=== PATIENT | female | born 1975 | race Caucasian/White ===

== ENCOUNTER 2025-08-09 21:28 | Emergency (ER) | payer MEDICAID, SELFPAY ==
[2025-08-09 21:31] VITALS: BP 170/88; PULSE 89; RESP 18; TEMP 37.1; O2SAT 98
[2025-08-09 21:37] VITALS: BP 170/88; PULSE 89; RESP 18; TEMP 37.1; O2SAT 98
--- NOTE | 2025-08-09 21:58 | W.ED.GENAD ---
Discharge Plan Discharge Details Chief Complaint: Abd Prob Primary Care Provider: Kendy Wiggins ED Provider: Connie Oliver Home Meds and New Rx's Prescriptions: No Action bupropion HCl 100 mg tablet 300 mg PO ONCE montelukast [Singulair] 10 mg tablet 10 mg PO DAILY hydroxychloroquine [Plaquenil] 200 mg tablet 600 mg PO DAILY pantoprazole 40 mg tablet,delayed release (DR/EC) 40 mg PO DAILY HPI General Mode of arrival: ambulatory. Date/Time Provider Initiated Documentation: 08/09/25 21:38. Limitations to Documentation: no limitations. Information obtained by: patient, RN notes reviewed and old records reviewed. HPI Narrative: 49-year-old female presents to the ER with chief complaint of mid suprapubic abdominal pain which has been ongoing for the last 7 days. She reports intermittent crampy type pain. No associated symptoms. Denies any nausea vomiting diarrhea, dysuria, fever or chills. She does have a history of and does have an IUD in place. Related Data Home Medications ?Medication ?Instructions ?Recorded ?Confirmed bupropion HCl 100 mg tablet 300 mg PO ONCE 08/09/25 08/09/25 hydroxychloroquine 200 mg tablet 600 mg PO DAILY 08/09/25 08/09/25 (Plaquenil) montelukast 10 mg tablet 10 mg PO DAILY 08/09/25 08/09/25 (Singulair) pantoprazole 40 mg tablet,delayed 40 mg PO DAILY 08/09/25 08/09/25 release Allergies Allergy/AdvReac Type Severity Reaction Status Date / Time adhesive tape Allergy Mild rash Verified 08/09/25 21:35 latex Allergy Mild rash Verified 08/09/25 21:35 codeine AdvReac Mild Nausea Verified 08/09/25 21:35 General Stated Complaint: Abd Prob RAQUEL: 3 Review of Systems All systems reviewed & are unremarkable except as noted in HPI and below Gastrointestinal Gastrointestinal: Reports abdominal pain, Reports nausea and Denies vomiting Exam Narrative Exam Narrative: Constitutional: Alert and oriented x3. Appears stated age. Obese body habitus. Head: Normocephalic, no trauma. Eyes: Pupils PERRL, Red reflex noted, EOM's intact. Eyelids symmetrical without lesions, discharge, or swelling. Chest: RRR, Normal S1, S2, distal pulses intact. Resp: Lungs clear to auscultation bilaterally, no wheezes, rales, or rhonchi. Abdomen: Soft, non-distended, Normoactive bowel sounds all 4 quads. Tenderness with palpation in the mid suprapubic area no masses noted. Musculoskeletal: Normal gait, Moves all 4 extremities without difficulty. Skin: No suspicious rashes or lesions. Capillary refill less than 2 sec. Neurologic: Cranial nerves II-XII intact. Alert and oriented x 3. Motor: No deficits noted. Hematologic/Lymphatic: No ecchymosis, no lymphadenopathy. Course Vital Signs Vital signs: Vital Signs Temperature 37.1 C 08/09/25 21:31 Pulse 89 08/09/25 21:31 Respiratory Rate 18 08/09/25 21:31 Blood Pressure 170/88 H 08/09/25 21:31 Pulse Oximetry 98 08/09/25 21:31 Temperature 37.1 C 08/09/25 21:37 Pulse 89 08/09/25 21:37 Respiratory Rate 18 08/09/25 21:37 Blood Pressure 170/88 H 08/09/25 21:37 Pulse Oximetry 98 08/09/25 21:37 Pain Level 7 08/09/25 21:37 Medical Decision Making 49-year-old female presents to the ER with chief complaint of mid suprapubic abdominal pain which has been ongoing for the last 7 days. She reports intermittent crampy type pain. No associated symptoms. Denies any nausea vomiting diarrhea, dysuria, fever or chills. She does have a history of and does have an IUD in place. Differential diagnosis includes but not limited to appendicitis, gastroenteritis, urinary tract infection, ovarian cyst, constipation, bowel obstruction however patient is having no vomiting no constipation. CBC, CMP urinalysis lipase CT abdomen pelvis ordered. CBC largely within normal limits no leukocytosis, CMP also within normal limits. Urinalysis shows no evidence for urinary tract infection, no leukocytes no nitrates no blood. CT abdomen pelvis is pending at this time. Care is to be handed off to Oncoming provider Dr. Ara Thomas pending CT result and dispo. Patient case and details discussed. Medical Records Medical records reviewed: Yes I reviewed the patient's medical records. Lab Data Lab results reviewed: Yes I reviewed the patient's lab results. Labs: Laboratory Tests Range/Units 08/09/25 08/09/25 22:00 22:09 WBC (4.4-10.8) 10^3/uL 8.18 RBC (3.93-5.22) 10^6/uL 4.11 Hgb (11.2-15.7) g/dL 11.7 Hct (36.0-46.0) % 36.2 MCV (80-95) fL 88 MCH (27.0-33.0) pg 28.5 MCHC (32.0-36.0) % 32.3 RDW (11.7-14.6) % 11.8 Plt Count (130-400) 10^3/uL 379 MPV (8.0-11.0) fL 9.9 Immature Gran % % 0.4 Neutrophils % % 56.0 Lymphocytes % % 29.6 Monocytes % % 10.3 Eosinophils % % 2.2 Basophils % % 1.5 Nucleated RBC % (0.0-0.3) % 0.0 Absolute Neutrophils (1.2-6.7) 10^3/uL 4.59 Absolute Lymphocytes (1.2-3.4) 10^3/uL 2.42 Absolute Monocytes (0.1-0.8) 10^3/uL 0.84 H Absolute Eosinophils (0.0-0.7) 10^3/uL 0.18 Absolute Basophils (0.0-0.2) 10^3/uL 0.12 Sodium (136-145) mmol/L 138 Potassium (3.5-5.1) mmol/L 3.8 Chloride (98-107) mmol/L 103 Carbon Dioxide (21.0-32.0) mmol/L 29.0 Anion Gap (3-11) mmol/L 6.0 BUN (7-18) mg/dL 14 Creatinine (0.55-1.02) mg/dL 0.9 Est GFR (CKD-EPI 2020) (mL/min/1.73m2) 78.37 Glucose (74-106) mg/dL 93 Calcium (8.5-10.1) mg/dL 8.5 Magnesium (1.8-2.4) mg/dL 1.9 Total Bilirubin (0.2-1.0) mg/dL 0.2 AST (15-37) U/L 19 ALT (14-59) U/L 30 Alkaline Phosphatase (46-116) U/L 93 Total Protein (6.4-8.2) g/dL 7.8 Albumin (3.4-5.0) g/dL 3.9 Lipase (<78) U/L 23 Urine Color (Yellow) Yellow Urine Clarity (Clear) Clear Urine pH (5-8) 7.0 Ur Specific [place] (1.005-1.025) 1.020 Urine Protein (Neg-Trace) mg/dL Negative Urine Ketones (Negative) mg/dL Negative Urine Blood (Negative) Negative Urine Nitrite (Negative) Negative Urine Bilirubin (Negative) Negative Urine Urobilinogen (Up to 0.2) mg/dL 0.2 Ur Leukocyte Esterase (Negative) Negative Urine Glucose (Negative) mg/dL Negative [facility] Surgical History (Updated 08/09/25 @ 22:52 by Connie Oliver NP) H/O: Social History Smoking risk assessment performed?: No
[2025-08-09 22:18] LABS: Glucose Negative (Negative)
[2025-08-09 22:18] LABS: Abs Immature Grans 0.03 10^3/uL (0.0-0.06); HCT 36.2 % (36.0-46.0); HGB 11.7 g/dL (11.2-15.7); Immature Grans % 0.4 %; MCH 28.5 pg (27.0-33.0); MCHC 32.3 % (32.0-36.0); MCV 88 fL (80-95); MPV 9.9 fL (8.0-11.0); Platelet Count 379 10^3/uL (130-400); RBC 4.11 10^6/uL (3.93-5.22); RDW 11.8 % (11.7-14.6); RDW-SD 38.0 fL; WBC 8.18 10^3/uL (4.4-10.8)
[2025-08-09] MEDS: Omnipaque 350 MG/ML 100 ML BTL IJ (22:24)
[2025-08-09] MEDS: Normal Saline - Diluent 50 ML VIAL IJ (22:25)
[2025-08-09] MEDS: Normal Saline Flush 10 ML SYR IVP (22:26)
--- NOTE | 2025-08-09 22:31 | DI.CT_ITS ---
Exam(s) CT ABDOMEN PELVIS W EXAM: CT ABDOMEN PELVIS W CLINICAL HISTORY: Mid Abd Pain. TECHNIQUE: Imaging Protocol: Axial computed tomography images with coronal and sagittal reformatted images were created and reviewed CONTRAST MATERIAL: Intravenous: Omnipaque-350 75cc Oral: None COMPARISON: No exams were available for comparison FINDINGS: VISUALIZED LUNG BASES: No nodules nor pleural effusions evident. ABDOMEN: There is no ascites. LIVER: There are no focal hepatic lesions evident. No dilated intrahepatic ducts. GALLBLADDER/BILIARY: Gallbladder surgically absent. CBD is not dilated. PANCREAS: No evidence of pancreatic mass nor dilatation of the pancreatic duct. SPLEEN: Spleen is not enlarged. No obvious intrasplenic lesions. Splenic and portal veins are patent. ADRENALS: There are no significant adrenal masses. KIDNEYS:No cysts evident. No solid renal masses. No calculi nor hydronephrosis.. ABDOMINAL AORTA: Abdominal aorta is not enlarged. LYMPH NODES:There is no retroperitoneal nor paraaortic adenopathy. ABDOMINAL WALL: No evidence of significant anterior abdominal wall nor inguinal hernia. GI: There is abundant fecal material throughout the colon although the mid- distal sigmoid are evacuated. There is some mild circumferential mural thickening in the upper sigmoid in left iliac fossa which appears to be a relative transition point with respect to the amount of fecal material in the colon. This may just represent muscular thickening in the wall the colon at this level but should undergo colonoscopy. There is no significant sigmoid diverticular disease. PELVIS: GI: Appendix not identified.No evidence of sigmoid diverticulitis. LYMPH NODES: There is no intrapelvic nor inguinal adenopathy. REPRODUCTIVE: There is an IUD in the endometrial canal which appears to be in good position. There is a left ovarian cyst measuring 2.5 by 2.0 cm. There is a peripherally enhancing corpus luteal cyst in the right ovary which measures 1.6 x 1.6 cm. There is a small amount of fluid in the right adnexal region and cul-de-sac. URINARY BLADDER: No calculi nor obvious masses evident OSSEOUS: No osseous lesions. No fractures. There is disc space narrowing at L4-5 and L5-S1 levels. There is mild anterolisthesis of L4 upon L5 which. IMPRESSION: 1. Bilateral ovarian cysts as described above including a peripherally enhancing corpus luteal cyst in the right ovary with some surrounding fluid in the right adnexa and cul-de-sac. An IUD is noted in the uterus. 2. Constipation. There is abundant fecal material throughout the colon to the level of the mid upper sigmoid. There is mild circumferential thickening of the wall of the upper sigmoid which may be significant and follow-up colonoscopy is recommended. 3. Previous cholecystectomy. Possibly also prior appendectomy SC appendix is not seen Report called by myself to ER physician 08/09/2025 at 11:45 p.m. RADIATION DOSE DELIVERED: 673.17mGy.cm Total DLP DATA REPOSITORY: All CT scans at this facility are submitted to the National Radiology Data Registry (NRDR) Dose Index Registry (DIR) with the [employer] (ACR). RADIATION OPTIMIZATION: All CT scans at this facility use at least one of these dose optimization techniques: automated exposure control; mA and/or kV adjustment per patient size (includes targeted exams where dose is matched to clinical indication); or iterative reconstruction.
[2025-08-09 22:33] LABS: ALT 30 U/L (14-59); AST 19 U/L (15-37); Albumin 3.9 g/dL (3.4-5.0); Alkaline Phosphatase 93 U/L (46-116); Anion Gap 6.0 mmol/L (3-11); BUN 14 mg/dL (7-18); Bilirubin, Total 0.2 mg/dL (0.2-1.0); CO2 29.0 mmol/L (21.0-32.0); Calcium 8.5 mg/dL (8.5-10.1); Chloride 103 mmol/L (98-107); Estimated GFR 78.37 (mL/min/1.73m2); Glucose 93 mg/dL (74-106); Lipase 23 U/L (<78); Magnesium 1.9 mg/dL (1.8-2.4); Potassium 3.8 mmol/L (3.5-5.1); Sodium 138 mmol/L (136-145); Total Protein 7.8 g/dL (6.4-8.2)
--- NOTE | 2025-08-09 23:32 | DI.[facility]_ITS ---
PROCEDURE INFORMATION: Exam: CT Abdomen And Pelvis With Contrast Exam date and time: 08/09/2025 10:19 PM Age: 49 years old Clinical indication: Abdominal pain; Localized; Mid abd pain TECHNIQUE: Imaging protocol: Computed tomography of the abdomen and pelvis with contrast. Radiation optimization: All CT scans at this facility use at least one of these dose optimization techniques: automated exposure control; mA and/or kV adjustment per patient size (includes targeted exams where dose is matched to clinical indication); or iterative reconstruction. Contrast material: [id number]; Contrast volume: 75 ml; Contrast route: INTRAVENOUS (IV); COMPARISON: No relevant prior studies available. FINDINGS: Liver: Normal. No mass. Gallbladder and biliary ducts: Normal. No calcified stones. No ductal dilation. Pancreas: Unremarkable. Spleen: Normal. Adrenal glands: Normal. No mass. Kidneys and ureters: Normal. No hydronephrosis. Stomach and bowel: No bowel wall thickening or intestinal obstruction. Most of the colon is mildly diffusely distended with stool, raising the possibility of constipation. Appendix: Prior appendectomy. Intraperitoneal space: Unremarkable. No pneumoperitoneum. No abscess. Vasculature: Unremarkable. Lymph nodes: Unremarkable. Urinary bladder: Unremarkable as visualized. Reproductive: 1.7 cm luteal cyst of the right ovary is mildly irregular in contour and there is small volume free fluid adjacent to the right ovary, findings which raise the possibility of recent right ovarian cyst rupture. 3 cm left ovarian cyst. IUD in place, appears adequately positioned. Bones/joints: Congenital anomaly versus chronic post surgical change of the posterior elements of L4. Soft tissues: Unremarkable. IMPRESSION: 1. 1.7 cm luteal cyst of the right ovary is mildly irregular in contour and there is small volume free fluid adjacent to the right ovary, findings which raise the possibility of recent right ovarian cyst rupture. 2. 3 cm left ovarian cyst. 3. Most of the colon is mildly diffusely distended with stool, raising the possibility of constipation. Dictated and Authenticated by: Fareed Duran MD. Orderin Melody Rosales MD
--- NOTE | 2025-08-09 23:43 | W.EDPROG ---
Date of service: 08/09/25 Time of Service: 23:00 Medical Decision Making This patient was signed out to me. Please see previous notes for H&P and inital eval. I brief, 49yo F with abdominal pain, initially RLQ now more diffuse across lower abdomen. Abdominal exam and labs reassuring. Signed out pending CT read. Radiology read below with suggestion of recent right ovarian cyst rupture. On reassessment patient is well appearing, reports continued mild crampy lower abdominal pain. Nontender on exam with no rebound or guarding. Her history of RLQ pain that then became more diffuse (and patient reports pain initially felt similar to ovulation pain) does seem to support radiology read. Given lower abdominal pain/pelvic pain, considered pelvic exam however patient declined. I am not concerned for ovarian torsion, TOA, or other pathology that would warrant transfer for pelvic ultrasound tonight. Will give dose of IV toradol here and discharge home. Prior to discharge called by Dr. Lucero [facility] radiologist reading from home this evening; he agrees with [facility] read and also notes concern for some thickening of upper sigmoid which warrants outpatient colonoscopy. This was communicated to patient. Discharged home; discharge instructions and return precautions were reviewed with patient who verbalized understanding. All questions were answered and she is in full agremeent with the plan. [facility] IMPRESSION: 1. 1.7 cm luteal cyst of the right ovary is mildly irregular in contour and there is small volume free fluid adjacent to the right ovary, findings which raise the possibility of recent right ovarian cyst rupture. 2. 3 cm left ovarian cyst. 3. Most of the colon is mildly diffusely distended with stool, raising the possibility of constipation Lab Data Lab results reviewed: Yes I reviewed the patient's lab results. Labs: Laboratory Tests Range/Units 08/09/25 08/09/25 22:00 22:09 WBC (4.4-10.8) 10^3/uL 8.18 RBC (3.93-5.22) 10^6/uL 4.11 Hgb (11.2-15.7) g/dL 11.7 Hct (36.0-46.0) % 36.2 MCV (80-95) fL 88 MCH (27.0-33.0) pg 28.5 MCHC (32.0-36.0) % 32.3 RDW (11.7-14.6) % 11.8 Plt Count (130-400) 10^3/uL 379 MPV (8.0-11.0) fL 9.9 Immature Gran % % 0.4 Neutrophils % % 56.0 Lymphocytes % % 29.6 Monocytes % % 10.3 Eosinophils % % 2.2 Basophils % % 1.5 Nucleated RBC % (0.0-0.3) % 0.0 Absolute Neutrophils (1.2-6.7) 10^3/uL 4.59 Absolute Lymphocytes (1.2-3.4) 10^3/uL 2.42 Absolute Monocytes (0.1-0.8) 10^3/uL 0.84 H Absolute Eosinophils (0.0-0.7) 10^3/uL 0.18 Absolute Basophils (0.0-0.2) 10^3/uL 0.12 Sodium (136-145) mmol/L 138 Potassium (3.5-5.1) mmol/L 3.8 Chloride (98-107) mmol/L 103 Carbon Dioxide (21.0-32.0) mmol/L 29.0 Anion Gap (3-11) mmol/L 6.0 BUN (7-18) mg/dL 14 Creatinine (0.55-1.02) mg/dL 0.9 Est GFR (CKD-EPI 2020) (mL/min/1.73m2) 78.37 Glucose (74-106) mg/dL 93 Calcium (8.5-10.1) mg/dL 8.5 Magnesium (1.8-2.4) mg/dL 1.9 Total Bilirubin (0.2-1.0) mg/dL 0.2 AST (15-37) U/L 19 ALT (14-59) U/L 30 Alkaline Phosphatase (46-116) U/L 93 Total Protein (6.4-8.2) g/dL 7.8 Albumin (3.4-5.0) g/dL 3.9 Lipase (<78) U/L 23 Urine Color (Yellow) Yellow Urine Clarity (Clear) Clear Urine pH (5-8) 7.0 Ur Specific [place] (1.005-1.025) 1.020 Urine Protein (Neg-Trace) mg/dL Negative Urine Ketones (Negative) mg/dL Negative Urine Blood (Negative) Negative Urine Nitrite (Negative) Negative Urine Bilirubin (Negative) Negative Urine Urobilinogen (Up to 0.2) mg/dL 0.2 Ur Leukocyte Esterase (Negative) Negative Urine Glucose (Negative) mg/dL Negative Discharge Plan Disposition Patient Disposition: Home Condition: Good Discharge Details Clinical Impression: Ovarian cyst rupture Primary Care Provider: Kendy Wiggins ED Provider: Denice Thomas Home Meds and New Rx's Prescriptions: No Action bupropion HCl 100 mg tablet 300 mg PO ONCE montelukast [Singulair] 10 mg tablet 10 mg PO DAILY hydroxychloroquine [Plaquenil] 200 mg tablet 600 mg PO DAILY pantoprazole 40 mg tablet,delayed release (DR/EC) 40 mg PO DAILY Discharge Instructions Instructions: Ovarian Cyst ED Additional Instructions: -Tylenol and ibuprofen at home for pain; follow the directions on the bottle. -Call your primary care doctor in the morning to schedule an appointment for within the next 72 hours to followup on your visit here. At that visit discuss your abdominal pain, your blood pressure (which is high here today), and your CT scan which showed some thickening in your colon for which you should have a colonsocopy to better evaluate. -It is likely your symptoms are from an ovarian cyst rupture,but it also still possible something else is going on . It is very important that you return to the emergency department for or worsening symptoms including worsening pain, fever, or if you have any other concerns.
[2025-08-09 23:50] VITALS: BP 145/79; PULSE 81; RESP 18; O2SAT 98
[2025-08-10] MEDS: Ketorolac 15 MG/ML VIAL IVP (00:04)
[2025-08-10 00:12] VITALS: BP 145/79; PULSE 81; RESP 18; O2SAT 98
== END 2025-08-10 00:13 | disposition home or self-care (01) ==
PROVIDERS: Registered Nurse Emergency; Emergency Provider Student in an Organized Health Care Education/Training Program; PCP Student in an Organized Health Care Education/Training Program
DX: R10.30 Lower abdominal pain, unspecified; N83.291 Other ovarian cyst, right side
CPT/HCPCS: 99284 ×2; 96374; 00123; 80053; 83690; 74177; 81003; 83735; 85025; J1885; J3490